=== PATIENT | female | born 1965 | race Caucasian/White ===

== ENCOUNTER 2017-11-01 06:26 | Day surgery (SDC) | payer OTHER ==
[~2017-11-01] VITALS: Ht 149.9 cm; Wt 93.6 kg
[~2017-11-01 06:26] MED LIST: ACET250T27 PO; MONT10TA21 PO; PANT40TA25 PO
[2017-11-01] MEDS ORDERED: BENZOCAINE 20% 50 MCG/SPRAY 57 GM TP ONE (06:27)
[2017-11-01] MEDS ORDERED: LIDOCAINE HCL 2% 30 ML JELLY TP ONE (06:27)
[2017-11-01] MEDS ORDERED: LIDOCAINE HCL 4% 50 ML SOLUTION TP ONE (06:27)
[2017-11-01] MEDS ORDERED: SODIUM CHLORIDE 0.9% 1,000 ML IV ONE ×2 (06:34→07:00)
[2017-11-01] MEDS ORDERED: MIDAZOLAM HCL 2 MG/2 ML VIAL ONE (07:20)
[2017-11-01] MEDS ORDERED: FentaNYL CITRATE-PF 100 MCG/2 ML VIAL ONE (07:20)
[2017-11-01] MEDS ORDERED: MethylPREDNISolone SOD SUCC 125 MG/2 ML VIAL IVP ONE (08:45)
[2017-11-01] MEDS ORDERED: MethylPREDNISolone SOD SUCC 125 MG/2 ML VIAL ONE (08:54)
[2017-11-01] MEDS ORDERED: OXYGEN THERAPY IH SCH (20:00)
== END 2017-11-01 09:55 | disposition home or self-care (01) ==
LOC: SURGERY 06:26
PROVIDERS: ATTEND Internal Medicine Critical Care Medicine
DX: J38.4 Edema of larynx (principal); B37.0 Candidal stomatitis; M19.90 Unspecified osteoarthritis, unspecified site; G43.909 Migraine, unspecified, not intractable, without status migrainosus; Z98.890 Other specified postprocedural states; Z88.0 Allergy status to penicillin; Z79.899 Other long term (current) drug therapy
CPT/HCPCS: 31623; 31624; 71045; 87015; 87070; 87205; 87220; 88108; 88312; J2250; J2930; J3010; J7030

== ENCOUNTER 2022-05-11 05:59 | Day surgery (SDC) | payer OTHER ==
[~2022-05-11] VITALS: Ht 149.9 cm; Wt 86.3 kg
[~2022-05-11 05:59] MED LIST changes: -ACET250T27 PO; +ACET250T31 PO; +MONT-35 PO; -MONT10TA21 PO; +PANT-31 PO; -PANT40TA25 PO
[2022-05-11] MEDS ORDERED: LIDOCAINE 4% 50 ML SOLUTION TP ONE (06:00)
[2022-05-11] MEDS ORDERED: ALBUTEROL SULFATE 2.5 MG/0.5 ML NEB SOLUTION NEB ONE (06:00)
[2022-05-11] MEDS ORDERED: BENZOCAINE 20% 50 MCG/SPRAY 57 GM TP ONE (06:00)
[2022-05-11] MEDS ORDERED: LIDOCAINE 2% 11 ML JELLY TP ONE (06:00)
[2022-05-11 06:55] LABS: COVID AG,FIA SOURCE NASAL SWAB
[2022-05-11] MEDS ORDERED: SODIUM CHLORIDE 0.9% 1,000 ML ONE (07:08)
[2022-05-11] MEDS ORDERED: MIDAZOLAM HCL 5 MG/ML VIAL ONE (07:59)
[2022-05-11] MEDS ORDERED: FentaNYL CITRATE PF 100 MCG/2 ML VIAL ONE (07:59)
[2022-05-11] MEDS ORDERED: METF-1211 PO (08:12)
[2022-05-11 08:16] LABS: GLUCOMETER DEV NAME(LOC) SDS.; GLUCOSE,POINT OF CARE 170 MG/DL (70-110)
[2022-05-11] MEDS ORDERED: MethylPREDNISolone SOD SUCC 125 MG/2 ML VIAL IVP ONE (09:30)
[2022-05-11] MEDS ORDERED: MethylPREDNISolone SOD SUCC 125 MG/2 ML VIAL ONE (09:47)
[2022-05-11 10:36] LABS: GLUCOMETER DEV NAME(LOC) SDS.; GLUCOSE,POINT OF CARE 134 MG/DL (70-110)
[2022-05-11] MEDS ORDERED: SODIUM CHLORIDE 0.9% 1,000 ML IV ONE (15:45)
[2022-05-11] MEDS ORDERED: OXYGEN THERAPY IH SCH (20:00)
== END 2022-05-11 12:35 | disposition home or self-care (01) ==
LOC: SURGERY 05:59
PROVIDERS: ATTEND Internal Medicine Critical Care Medicine
DX: J38.4 Edema of larynx (principal); B37.0 Candidal stomatitis; I10 Essential (primary) hypertension; Z79.899 Other long term (current) drug therapy; Z98.890 Other specified postprocedural states; Z79.4 Long term (current) use of insulin; Z20.822 Contact with and (suspected) exposure to COVID-19
CPT/HCPCS: 31623; 82962; 87101; 87220; 87070; 31624; 94640; 71045; 87015; 87426; 87206; J3010; J2930; J2250; Q9967; J7030; C9803; J7613; Z7610